=== PATIENT | female | born 1990 | race Caucasian/White ===

== ENCOUNTER 2024-07-31 16:52 | Emergency (ER) | payer OTHER ==
[2024-07-31 16:59] VITALS: BP 117/79; PULSE 94; RESP 20; TEMP 98.4; BMI 24.7
[2024-07-31] MEDS ORDERED: guaiFENesin/D-METHORPHAN HB 10 ML UNIT-DOSE CUPS ONE (17:57)
[2024-07-31] MEDS: guaiFENesin/D-METHORPHAN HB 10 ML UNIT-DOSE CUPS PO ONE (18:01)
[2024-07-31] MEDS: MAG HYDROX/ALH/SMC/DPHA/LIDO 240 ML MOUTHWASH MM ONE (18:11)
[2024-07-31 18:23] LABS: THROAT:GRP A STREP NOT DETECTED (NOTDETECTED)
== END 2024-07-31 19:36 | disposition home or self-care (01) ==
LOC: JERFT 16:52
DX: R05.9 Cough, unspecified (principal); R09.82 Postnasal drip; J30.9 Allergic rhinitis, unspecified; J02.9 Acute pharyngitis, unspecified; R09.81 Nasal congestion; J06.9 Acute upper respiratory infection, unspecified; Z20.822 Contact with and (suspected) exposure to COVID-19
CPT/HCPCS: 0241U-QW; 87651; 99283-25